=== PATIENT | female | born 1980 | race Caucasian/White ===

== ENCOUNTER 2020-11-14 10:06 | Outpatient (CLI) | payer MEDICAID ==
[2020-11-14 11:46] VITALS: BP 124/61
[2020-11-14 11:58] VITALS: BP 118/64
== END 2020-11-14 12:01 | disposition home or self-care (01) ==
LOC: LDOP 10:06
PROVIDERS: ATTEND Obstetrics & Gynecology
DX: O26.893 Other specified pregnancy related conditions, third trimester (principal); Z67.41 Type O blood, Rh negative; Z3A.28 28 weeks gestation of pregnancy
CPT/HCPCS: 36415; 86850; 86900; 96372; J2790

== ENCOUNTER 2020-11-30 12:28 | Outpatient (CLI) | payer MEDICAID ==
[~2020-11-30] VITALS: Ht 162.6 cm; Wt 86.2 kg
[2020-11-30 14:01] LABS: MICROSCOPIC NOT IND
[2020-11-30] MEDS ORDERED: PREN1TAB60 PO (15:22)
== END 2020-11-30 14:43 | disposition home or self-care (01) ==
LOC: LDOP 12:28
PROVIDERS: ATTEND Obstetrics & Gynecology
DX: O09.93 Supervision of high risk pregnancy, unspecified, third trimester (principal); O26.893 Other specified pregnancy related conditions, third trimester; R10.9 Unspecified abdominal pain; M54.9 Dorsalgia, unspecified; Z3A.30 30 weeks gestation of pregnancy
CPT/HCPCS: 59025; 81003; 87086

== ENCOUNTER 2020-12-27 07:21 | Outpatient (CLI) | payer MEDICAID ==
[~2020-12-27 07:21] MED LIST: PREN1TAB60 PO
[2020-12-27 07:59] LABS: MICROSCOPIC NOT IND
== END 2020-12-27 09:47 | disposition home or self-care (01) ==
LOC: LDOP 07:21
PROVIDERS: ATTEND Obstetrics & Gynecology
DX: O26.893 Other specified pregnancy related conditions, third trimester (principal); R10.2 Pelvic and perineal pain; Z3A.34 34 weeks gestation of pregnancy
CPT/HCPCS: 59025; 81003; 87086

== ENCOUNTER 2021-01-30 07:41 | Inpatient (IN) | payer MEDICAID ==
[~2021-01-30] VITALS: Ht 152.4 cm; Wt 90.0 kg
[2021-01-30] MEDS ORDERED: D5%-LACTATED RINGERS 1,000 ML IV SCH (08:00)
[2021-01-30] MEDS ORDERED: OXYTOCIN 30U/ 0.9% NaCL 500ML 500 ML IV PRN ×2 (08:00→18:30)
[2021-01-30] MEDS ORDERED: OXYTOCIN 30U/ 0.9% NaCL 500ML 500 ML IV ONE (08:00)
[2021-01-30] MEDS ORDERED: MISOPROSTOL 25 MCG TABLET VG PRN (08:00)
[2021-01-30] MEDS ORDERED: CALCIUM CARBONATE 500 MG TAB.CHEW PO PRN (08:00)
[2021-01-30] MEDS ORDERED: FENTANYL PF 100 MCG/2ML IVPush PRN (08:00)
[2021-01-30] MEDS ORDERED: FENTANYL PF 100 MCG/2ML IV PRN (08:00)
[2021-01-30] MEDS ORDERED: LACTATED RINGERS 1,000 ML IV SCH (08:00)
[2021-01-30] MEDS ORDERED: TERBUTALINE 1 MG/ML, 1ML IVPush PRN (08:00)
[2021-01-30] MEDS ORDERED: TERBUTALINE 1 MG/ML, 1ML SQ PRN (08:00)
[2021-01-30] MEDS ORDERED: ONDANSETRON 2MG/ML, 2ML IVPush PRN (08:00)
[2021-01-30 08:03] LABS: BASOPHILS % (AUTO) 1 % (0-1); EOSINOPHILS % (AUTO) 0 % (1-7); LYMPHOCYTES % (AUTO) 20 % (22-44); MEAN CORPUSCULAR HEMOGLOBIN 29.4 pg (27.0-34.8); MEAN CORPUSCULAR HGB CONC 33.9 g/dL (32.4-35.8); MEAN PLATELET VOLUME 7.5 fL (7.4-10.4); MONOCYTES % (AUTO) 4 % (2-9); NEUTROPHILS % (AUTO) 76 % (42-75); PLATELET COUNT 252 x10^3/uL (130-400); RED BLOOD COUNT 4.21 x10^6/uL (3.82-5.3); RED CELL DISTRIBUTION WIDTH 14.3 % (9.6-15.2)
[2021-01-30] MEDS ORDERED: NEWBORN KIT ONE (08:22)
[2021-01-30] MEDS ORDERED: PLEASE ENTER HEIGHT AND WEIGHT MC SCH (08:30)
[2021-01-30] MEDS ORDERED: PLEASE ENTER ALLERGIES MC SCH (08:30)
[2021-01-30] MEDS ORDERED: LIDOCAINE/MPF 2%-EPI 1:200K, 20 ML ONE (08:37)
[2021-01-30] MEDS ORDERED: MISOPROSTOL 200 MCG TABLET ONE (08:38)
[2021-01-30] MEDS ORDERED: OXYTOCIN 30U/ 0.9% NaCL 500ML 500 ML ONE (08:38)
[2021-01-30] MEDS ORDERED: MISOPROSTOL 25 MCG TABLET ONE (08:50)
[2021-01-30 19:15] VITALS: BP 143/85
[2021-01-30] MEDS ORDERED: ACETAMINOPHEN 325 MG TABLET PO PRN ×2 (22:00)
[2021-01-30] MEDS ORDERED: ONDANSETRON 2MG/ML, 2ML IV PRN (22:00)
[2021-01-30] MEDS ORDERED: OXYcodone/APAP 5/325MG TABLET PO PRN ×2 (22:00)
[2021-01-30] MEDS ORDERED: DOCUSATE 100 MG CAPSULE PO PRN (22:00)
[2021-01-30] MEDS ORDERED: MISOPROSTOL 200 MCG TABLET PR PRN (22:00)
[2021-01-30] MEDS ORDERED: SIMETHICONE 80 MG CHEW TAB PO PRN (22:00)
[2021-01-30] MEDS ORDERED: IBUPROFEN 600 MG TABLET PO PRN (22:00)
[2021-01-30] MEDS ORDERED: OXYTOCIN 30U/ 0.9% NaCL 500ML 500 ML IV SCH (22:00)
[2021-01-30 23:05] VITALS: BP 129/71
[2021-01-31] MEDS ORDERED: OXYTOCIN 30U/ 0.9% NaCL 500ML 500 ML IV SCH
[2021-01-31 03:40] VITALS: BP 138/81
[2021-01-31 05:29] LABS: BASOPHILS % (AUTO) 0 % (0-1); EOSINOPHILS % (AUTO) 0 % (1-7); LYMPHOCYTES % (AUTO) 9 % (22-44); MEAN CORPUSCULAR HEMOGLOBIN 28.9 pg (27.0-34.8); MEAN CORPUSCULAR HGB CONC 34.1 g/dL (32.4-35.8); MEAN PLATELET VOLUME 8.1 fL (7.4-10.4); MONOCYTES % (AUTO) 7 % (2-9); NEUTROPHILS % (AUTO) 84 % (42-75); PLATELET COUNT 222 x10^3/uL (130-400); RED BLOOD COUNT 3.91 x10^6/uL (3.82-5.3); RED CELL DISTRIBUTION WIDTH 14.1 % (9.6-15.2)
[2021-01-31 08:00] VITALS: BP 128/80
[2021-01-31] MEDS: PRENATAL VIT/IRON/FA 1 EACH TABLET PO SCH (09:13)
[2021-01-31 12:30] VITALS: BP 129/79
[2021-01-31 16:00] VITALS: BP 120/74
[2021-01-31 19:34] VITALS: BP 144/78
[2021-01-31 23:46] VITALS: BP 136/79
[2021-02-01] MEDS: PRENATAL VIT/IRON/FA 1 EACH TABLET PO SCH (09:00)
== END 2021-02-01 13:37 | disposition home or self-care (01) | DRG 807 ==
LOC: LDIP 07:41 → 2NW 22:45
PROVIDERS: ADMIT Obstetrics & Gynecology; ATTEND Obstetrics & Gynecology
PROC: 10E0XZZ Delivery of Products of Conception, External Approach (ICD-10-PCS; principal; 2021-01-30)
PROC: 3E0P7VZ Introduction of Hormone into Female Reproductive, Via Natural or Artificial Opening (ICD-10-PCS; 2021-01-30)
PROC: 3E033VJ Introduction of Other Hormone into Peripheral Vein, Percutaneous Approach (ICD-10-PCS; 2021-01-30)
DX: O69.81X0 Labor and delivery complicated by cord around neck, without compression, not applicable or unspecified (principal); Z37.0 Single live birth; Z3A.39 39 weeks gestation of pregnancy; O09.43 Supervision of pregnancy with grand multiparity, third trimester; Z20.822 Contact with and (suspected) exposure to COVID-19; Z88.1 Allergy status to other antibiotic agents
CPT/HCPCS: 36415; 85025; 86592; 86850; 86900; 87635; G0378; J2590; J7120